=== PATIENT | female | born 1950 | race Caucasian/White ===

== ENCOUNTER 2018-02-05 09:00 | Outpatient (RCR) | payer MEDICARE, SELFPAY ==
--- NOTE | 2018-01-07 10:43 | HP.OTEVAL ---
Patient's Visit Information KATI AVILA is a 67 year old F, referred to Occupational Therapy by Juwan Thayer, with a diagnosis of L hand Paresthesia. Date of Evaluation: 01/07/18 Occupational Therapist: Katya Holt - Subjective Subjective: Arrived for OT eval. She noted that symptoms started approximately 12 years ago. She has tetanus shot and had adverse rx to the injection. 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 She noted recovered and was not determined to daily life. This pasted , 12/08/17, she noted was signing in choir and went back to sit with family. She noted as she sat down she has increased severe pain in R knee which went up and around body. She noted that it was severe and that it resulted in trip to ER as she had increased symptoms. She noted ER dx with bursitis and she followed up with darya who not Bursitis is localized pain. Dr. Thayer believed she had about GBS related attack as further blood work indicates levels related to GBS being elevated. She noted she is to go back for further blood work in a couple of months. The major lingering issue is L hand paresthia. Notes MF feels completely numb. she has not had spinal tap or further GBS related testing at this time besides blood work completed in Dr. Rdz office. Noted she has had moderate CTS for the last couple of years. - Pain Left Hand 0 - Objective Concerns: Talked with Mirian from Dr. Thayer office to get correct order from R hand to L hand. - ROM Wrist: flexion R 0-65, L 0-72; ext R 0-46, L 0-46 ROM Comments: Able to make full fist B hands. Reports no nerve conduction study at this time. - Strength Computer Systems Design Analyst: R 56, L 31 Lateral Pinch: R 16, L 10 Tripod Pinch: R 12, L 6 Tip-to-Tip Pinch: R 11, L 7 - Sensation Thumb: R 2.83, L 2.83 Index: R 2.83, L 2.83 Middle: R 2.83, L 3.22 Ring: R 3.22, L 2.83 Little: R 3.22, L 2.83 - Nine Hole Peg Right: 21.93 s Left: 21.23 s - Special Tests Phalen's (Carpal Tunnel): positive Tinel's: positive - DASH-Disabilities of Arm, Shoulder& Hand DASH Sum: 53 - Goals Goal:: Pt. to increase L sales property manager by 10 lbs to promote increased ability to complete ADl/IADLS by time of d/c. Goal:: Pt. to report decrease symptoms of numbness and tingling 4/5 trials 80% of the time to increase comfort and ability to use L hand. Goal:: Pt. to demo understanding and application of joint protect and body mechanics to decrease compression over medican nerve 4/5 trials 80% of the time by d/c. Goal:: Pt. to be mod I to complete HEP to promote increased participation in ADl/IADls and decrease symptoms of numbness and tingling 4/5 trials 80% of the time by d/c. - Rehabilitation Rehabilitation Potential: Good - Anticipated Interventions Anticipated Interventions: A/AAROM/PROM, Strengthening, Sensory Retraining, Modalities, Orthoses, Joint Protection/Energy Conservation, Ergonomic Education, Fine Motor Coord/Linus, Caregiver Training, Home Program - Visit Plan Frequency: 2-3x /Week Duration: 6 Weeks TEXT: Thank you for the opportunity to evaluate your patient. For Medicare and Medicare HMO plans, please review the plan of care and approve it. It will need to be FAXED BACK to us at [phone] for Medicare purposes. Please let me know if there are questions or concerns regarding this plan of care. Physician Signature: Date:
--- NOTE | 2018-02-05 09:38 | HP.OTDCSUM ---
HP - OT D/C Summary It has been my pleasure to treat KATI AVILA under orders from Juwan Thyaer, for the diagnosis of L hand Paresthesia for a total of 12 visit(s). Please see the following information for a summary of their discharge status. - Overall Improvement % Improvement: 75 - Objective Objective/Function: ROM is WFL for B wrist and hands. Strength measurements are as follows: supervisor prepress R 46, L 44 lbs, lateral pinch R 15, L 11; three jaw R 13, L 12; tip pinch R 13, L 12 lbs; 9 hole pegboard test results are as follows: R 18.66 s, L 20.98s; Monofilament test: R hand. 2nd 2.83. 3rd 2.83. 4th 2.83. 5th 2.83. thumb 2.83. L hand. 2nd 3.22. 3rd 3.22. 4th 2.83. 5th 2.83. thumb 2.83 - Goals Patient Goals: Regain Mobility, Regain Strength, Decrease Swelling/Stiffness, Improve Fine Motor Skills, Use Hand/Wrist/Arm Normally Again, Sleep Better, Decrease Tingling/Numbness, Be More Independent in ADLS, Resume Former Household Responsibilities (Cooking,Cleaning,Yard, etc.), Resume Hobbies Goal:: Pt. to increase L supervisor prepress by 10 lbs to promote increased ability to complete ADl/IADLS by time of d/c. Goal:: Pt. to report decrease symptoms of numbness and tingling 4/5 trials 80% of the time to increase comfort and ability to use L hand. Goal:: Pt. to demo understanding and application of joint protect and body mechanics to decrease compression over median nerve 4/5 trials 80% of the time by d/c. Goal:: Pt. to be mod I to complete HEP to promote increased participation in ADl/IADls and decrease symptoms of numbness and tingling 4/5 trials 80% of the time by d/c. - Plan Plan: She will be d/c'd today. Progress has plateaued. She is to call with questions/concerns and return to doctor if symptoms continue to get worse. Remainder of appointments will be canceled as progress has plateaued since initial evaluation. Maybe beneficial if symptoms get worse to get further testing like nerve conduction. - D/C Information If there are questions or concerns regarding this patient's occupational therapy, please fell free to call me at [phone]. Thank you for the referral of this patient. Sincerely, Katya Holt
== END 2018-02-05 18:26 | disposition home or self-care (01) ==
LOC: OT 09:00
PROVIDERS: Family Provider Student in an Organized Health Care Education/Training Program; PCP Student in an Organized Health Care Education/Training Program; Visit Provider Student in an Organized Health Care Education/Training Program
DX: R20.2 Paresthesia of skin (principal)
CPT/HCPCS: 97035; 97110; 97140; 97166; 97168; 97530; G8987; G8988

== ENCOUNTER 2020-12-02 11:38 | Emergency (ER) | payer MEDICARE, SELFPAY ==
[2020-04-13 13:58] VITALS: BMI 29.4
[2020-12-02 11:40] VITALS: BP 163/95; PULSE 72; RESP 16; TEMP 35.7; O2SAT 97; BMI 28.0
[2020-12-02 12:29] VITALS: BP 160/109; PULSE 77; RESP 22; O2SAT 97
[2020-12-02 12:33] VITALS: O2SAT 96
--- NOTE | 2020-12-02 12:35 | CT_ITS ---
STUDY: CTA CHEST REASON FOR EXAM: Female, 70 years old. Elevated dimer, sob GFT and gt;60 yesterday RADIATION DOSAGE (If Supplied By Facility): CTDIvol = ( 8.63 ) mGy, DLP = ( 365.09 ) mGycm TECHNIQUE: The examination was performed with the intravenous administration of IV 75mL Isovue-370. Post-processing of the angiographic images was performed, with multiplanar reformation and 3D reconstruction. Individualized dose optimization techniques were used for this CT. COMPARISON: None. FINDINGS: Normal enhancement of the main pulmonary artery and right and left pulmonary arteries. Normal enhancement of the bilateral peripheral pulmonary arteries. There is no demonstrated pulmonary embolism. There is atherosclerotic calcification of the aortic arch with tortuosity. There is no demonstrated aortic dissection. Normal heart and pericardium. Normal mediastinum. Normal hilar regions. Normal visualized trachea and bronchi. The lungs are well expanded. Normal pulmonary parenchyma. Normal pleura. Normal chest wall structures. There are degenerative changes of thoracic spine. Normal visualized upper abdomen. CT/CTA Chest W/WO Contrast IMPRESSION: Normal CTA chest examination, without a demonstrated pulmonary embolism or arterial dissection. Electronically Signed: Oliveir Castro MD at 13:37 EDT , Service support ,
--- NOTE | 2020-12-02 12:38 | EKG12_ITS ---
Test Reason : SOB Blood Pressure : / mmHG Vent. Rate : 056 BPM Atrial Rate : 056 BPM P-R Int : 164 ms QRS Dur : 144 ms QT Int : 448 ms P-R-T Axes : 052 -64 093 degrees QTc Int : 432 ms Sinus bradycardia Left axis deviation Left bundle branch block Abnormal ECG Confirmed by CHIN COFFEY, JAMES ([id number]), commissioning editor SARA ALFARO ([id number]) on 12/05/2020 12:57:51 PM Referred By: SUSANA Confirmed By:JAMES NEELY MD
[2020-12-02 15:35] VITALS: BP 139/62; PULSE 71; RESP 16; O2SAT 97; O2SAT 98
--- NOTE | 2020-12-02 15:41 | ED.VIS.DYS ---
HPI History of Present Illness Chief Complaint: Shortness of Breath Informant: patient Narrative Narrative: Patient is 70-year-old female with history of hypertension and hyperlipidemia presenting for elevated D-dimer and outpatient blood work. Patient followed up with a nurse practitioner at her office yesterday for complaint of shortness of breath. Patient states she has had worsening dyspnea on exertion for the past 6 months or so. She states he had a stress test about a year ago which was normal but did show a left bundle branch block. She had a D-dimer ordered which came back greater than 800 so is recommend she come to the emergency room for further evaluation. Patient states she intermittently feels like her heart is beating harder with exertion. She also feels that it is going faster. She states that she has a constant chest heaviness but denies any chest pain. She feels short of breath with exertion but feels fine at rest. She notes she intermittently does get pain in her left collarbone is not sure if that is related. She denies any associated orthopnea or leg swelling. She has a history of DVT or PE. She denies any GI or symptoms. No other complaints at this time. [facility] Medical History (Updated 12/02/20 @ 15:[address] Katherine Mullins, DO) Hyperlipidemia Hypertension Rectocele Home Medications atorvastatin 10 mg tablet 10 mg PO QDAY 10/03/17 [History Last Taken Unknown] lisinopril 5 mg tablet 5 mg PO QDAY 10/03/17 [History Last Taken Unknown] multivitamin,qu-nmuu-mwwtnllr 1 tab PO QDAY 10/03/17 [History Last Taken Unknown] estradiol See Dose Instructions VAGINAL .COMPLEX #42.5 g 04/13/20 [Rx Last Taken Unknown] Allergy/AdvReac Type Severity Reaction Status Date / Time Sulfa (Sulfonamide Allergy Mild Other Verified 12/02/20 11:39 Antibiotics) tetanus and diphtheria Allergy Mild Other Verified 12/02/20 11:39 toxoids Family History Father Cancer pulmonary Mother Heart disease Surgical History (Updated 12/02/20 @ 12:31 by Cristopher Mayers) H/O dilation and curettage History of LAVH History of partial hysterectomy History of suburethral sling procedure Social History (Updated 09/16/20 @ 14:[address] Tiara Thomas MD) Smoking Status: Never smoker alcohol intake: never substance use type: does not use caffeine: No what type of physical activity do you participate in: walking frequency: 3-4 times per week seatbelt use: always do you feel safe at home: Yes additional social history: - Susana- Leah Patient works with [employer] ED Constitutional Constitutional ED: Denies fatigue or weakness Eyes Eyes: Denies blurry vision or other visual disturbances ENT ENT ED: Denies rhinorrhea or sore throat Cardiovascular Cardiovascular: Reports chest pain and racing heartbeat; Denies orthopnea Respiratory/Chest Respiratory/Chest: Reports dyspnea on exertion; Denies cough, dyspnea or orthopnea Gastrointestinal Gastrointestinal: Denies abdominal pain, nausea or vomiting Genitourinary Genitourinary ED: Denies decreased urination or dysuria Musculoskeletal Musculoskeletal: Reports other Details: no leg swelling ; Denies extremity pain Integumentary Denies new lesions or rash Neurologic Neurologic: Denies paresthesias or weakness Psychiatric Psychiatric: Denies anxiety or depression Hematologic/Lymphatic Hematologic/Lymphatic: Denies easy bleeding or easy bruising EXAM Physical Exam Const Vital Signs: 12/02/20 11:40 12/02/20 12:29 12/02/20 12:33 Temperature 96.3 F L Temperature Source Temporal Pulse Rate 72 77 Respiratory Rate 16 22 H Respiratory Effort Normal Non-Labored Respiratory Depth Normal Respiratory Pattern Normal Blood Pressure 163/95 H 160/109 H Blood Pressure Mean 117 126 Pulse Ox 97 97 Oxygen Delivery Method Room Air Room Air Room Air 12/02/20 15:35 Temperature Temperature Source Pulse Rate 71 Respiratory Rate 16 Respiratory Effort Respiratory Depth Respiratory Pattern Blood Pressure 139/62 H Blood Pressure Mean 87 Pulse Ox 97 Oxygen Delivery Method Room Air Positive well nourished, well developed, alert and oriented x3 General Appearance ED: well developed HEENT Reports normocephalic and moist mucous membranes normocephalic and atraumatic Mouth ED: Yes moist mucous membranes normal Eyes PERRL and EOMs intact bilaterally General Eye ED: Yes normal appearance of both eyes Pupil: PERRL Neck supple and no JVD Lymph Lymphatic: no lymphadenopathy noted Chest Wall inspection of chest normal and palpation of chest normal Resp normal respiratory effort, normal air movement and clear to auscultation bilaterally Cardio regular rate, regular rhythm and no murmurs Peripheral Pulses: pulses 2+ throughout GI non-tender and non-distended Palpation: soft Back/Spine no CVA tenderness and normal to inspection Extremity normal to inspection and full ROM Neuro oriented x3, moves all extremities and no focal motor deficits Sensorium / Orientation: alert Psych mental status grossly normal and thought process normal Skin no rashes or lesions noted and no petechiae Lesions: no lesions Rashes: no rashes MDM MDM MDM Narrative Medical decision making narrative: Patient is evaluated for worsening dyspnea exertion over the past 6 months. She had elevated outpatient D-dimer so she was sent to the ER for further evaluation. Patient is well-appearing. She has normal vital signs except for mild hypertension. EKG does show left bundle branch block which is chronic. Her labs are reviewed from yesterday which show D-dimer greater than 800, normal CBC and grossly normal CMP. I given the patient had a creatinine and GFR yesterday did not repeat it. I did add on troponin and BNP which were normal. CTA did not show any acute process. Patient is ambulated emergency room and does not have any hypoxia. She is very well-appearing. I think she is stable for outpatient follow-up for her dyspnea on exertion. Patient is counseled on return precautions. She verbalized agreement understanding this plan. She is discharged home in stable condition. Lab Data Attestation: I reviewed the patient's lab results. Labs: Laboratory Results - last 24 hr 12/02/20 12/02/20 11:50 11:50 Troponin I < 0.015 B-Natriuretic Peptide 21.0 Radiography Diagnostic Testing: Radiology Impression Chest CTA 12/02/20 12:35 IMPRESSION: Normal CTA chest examination, without a demonstrated pulmonary embolism or arterial dissection. Electronically Signed: Olivier Castro MD at 13:37 EDT , Service support , Rhythm Strip Rhythm Strip: Sinus Rhythm Rate: 56 Ectopy: None EKG Initial EKG: Attestation: I personally reviewed and interpreted this EKG as follows: Interpretation: Sinus Bradycardia and LBBB Comments: Sinus bradycardia rate of 56 Left axis deviation Normal intervals Left bundle branch block No ischemic changes Treatment and Re-Evaluation Comments:: Elevated outpatient D-dimer. CTA, troponin and BNP all unremarkable. Discharged home after normal ambulatory pulse ox. Discharge Plan Triage Chief Complaint: Shortness of Breath ED Provider: Katherine Mullins Dx/Rx/DC Orders Clinical Impression: MAJOR (dyspnea on exertion) Instructions: ED Dyspnea Prescriptions: No Action atorvastatin [Lipitor] 10 mg tablet 10 mg PO QDAY RF: 0 lisinopril 5 mg tablet 5 mg PO QDAY RF: 0 multivitamin,iu-evdb-lhovxatl tablet tablet 1 tab PO QDAY RF: 0 estradiol [Estrace] 0.01 % (0.1 mg/gram) cream See Dose Instructions VAGINAL .COMPLEX Qty: 42.5 RF: 3 Primary Care Provider: Juwan Thayer Referrals: Juwan Thayer DO [Primary Care Provider] - Activity Restrictions/Additional Instructions: Your work-up here is normal. I am not sure what is causing your shortness of breath but I recommend he continue to follow-up with your primary care doctor for further evaluation of this. You might require referral to a heart doctor or a lung doctor. Disposition Disposition: Home, self care
[2020-12-02 16:14] VITALS: BP 156/90; PULSE 82; RESP 17; O2SAT 97
== END 2020-12-02 16:21 | disposition home or self-care (01) ==
PROVIDERS: Emergency Provider Emergency Medicine; PCP Student in an Organized Health Care Education/Training Program
DX: R06.09 Other forms of dyspnea (principal); R07.89 Other chest pain; I10 Essential (primary) hypertension; I44.7 Left bundle-branch block, unspecified; E78.5 Hyperlipidemia, unspecified; Z79.899 Other long term (current) drug therapy
CPT/HCPCS: 71275; 83880; 84484; 93005; 99284; Q9967

== ENCOUNTER → 2023-03-21 | Outpatient (CLI) | payer MEDICARE, SELFPAY ==
[2023-03-21 17:12] LABS: Absolute Lymphocyte Count 1.95 X10^3/uL (0.83-4.51); Absolute Neutrophil Count 3.2 X10^3/uL (2.0-7.7); Basophil# 0.03 X10^3/uL; Basophil% 0.5 % (0-1); Eosinophil# 0.06 X10^3/uL; Hematocrit 43.3 % (37-47); Hemoglobin 14.4 g/dL (12.0-15.0); Lymphocyte # 1.95 X10^3/ul (0.83-4.51); Lymphocyte % 34.1 % (19-41); Mean Corp Hgb Conc 33.3 g/dL (32-36); Mean Corpuscular Hgb 30.2 pg (27.0-32.0); Mean Corpuscular Volume 90.8 fL (81-99); Mean Platelet Vol. 10.9 fl (6.2-12.0); Monocyte# 0.49 X10^3/uL; Monocyte% 8.6 % (0-10); NRBC Flagged by Analyzer 0 % (0-5); Neutrophil # 3.18 X10^3/uL (2.7-7.7); Neutrophil % 55.6 % (47-70); Platelet Count 162 K/mm3 (150-450); RBC Distribution Width CV 12.4 % (11.6-14.6); RBC Distribution Width SD 41.4 fl (35.1-43.9); Red Blood Count 4.77 M/mm3 (4.2-5.4); White Blood Count 5.7 K/mm3 (4.4-11.0)
[2023-03-21 17:19] LABS: Erythrocyte Sedimentation Rate 3 mm/hr (0-30)
[2023-03-21 17:45] LABS: CRP < 2.90 mg/L (0.0-3.0); LDH 176 U/L (84-246)
[2023-03-25 13:07] LABS: Anti-Centromere B Ab <0.2 AI (0.0-0.9); Anti-Chromatin <0.2 AI (0.0-0.9); Anti-Jo <0.2 AI (0.0-0.9); Anti-Scleroderma-70 AB <0.2 AI (0.0-0.9); Anti-dsDNA Ab <1 IU/mL (0-9); RNP Ab <0.2 AI (0.0-0.9); SJOGREN'S Anti-SS-A test < 0.2 AI (0.0-0.9); SJOGREN'S Anti-SS-B test < 0.2 AI (0.0-0.9); Smith Ab <0.2 AI (0.0-0.9)
[2023-03-25 22:06] LABS: Pancreatic Elastase, Fecal 238 (>200)
[2023-03-26 03:07] LABS: Albumin 3.4 g/dL (2.9-4.4); Alpha-1-Globulins 0.2 g/dL (0.0-0.4); Alpha-2-Globulins 0.7 g/dL (0.4-1.0); Cytoplasmic Ab (C-ANCA) <1:20 titer (Neg:<1:20); Endomysial Antibody IgA Negative (Negative); Gamma Globulin 1.1 g/dL (0.4-1.8); Immunoglobulin A 290 mg/dL (64-422); Immunoglobulin E 24 IU/mL (6-495); Immunoglobulin G 1142 mg/dL (586-1602); Immunoglobulin M 69 mg/dL (26-217); PROEL- TOTAL PROTEIN 6.6 g/dL (6.0-8.5); Perinuclear Ab (P-ANCA) <1:20 titer (Neg:<1:20); t-Transglutaminase IgA <2 U/mL (0-3)
[2023-03-27 01:06] LABS: Calprotectin, Stool 75 ug/g (0-120)
== END | disposition home or self-care (01) ==
PROVIDERS: PCP Student in an Organized Health Care Education/Training Program; Referring Provider Internal Medicine Gastroenterology; Visit Provider Internal Medicine Gastroenterology
DX: N81.6 Rectocele (principal); K58.9 Irritable bowel syndrome, unspecified
CPT/HCPCS: 36415; 82653; 82784; 82785; 83516; 83615; 83630; 83993; 84165; 85025; 85652; 86140; 86225; 86235; 86255; 86256; 86334; 87177; 87209; 87329; 87493; 87506

== ENCOUNTER 2023-03-22 09:16 | Outpatient (CLI) | payer MEDICARE, SELFPAY | END 2023-03-22 23:59 | disposition home or self-care (01) | LOC: MTLAB 09:16 | PROVIDERS: PCP Student in an Organized Health Care Education/Training Program; Referring Provider Internal Medicine Gastroenterology; Visit Provider Internal Medicine Gastroenterology | DX: Z00.00 Encounter for general adult medical examination without abnormal findings (principal) ==

== ENCOUNTER → 2023-04-04 | Outpatient (CLI) | payer MEDICARE, SELFPAY ==
--- NOTE | 2023-04-04 14:32 | CT_ITS ---
STUDY: CT ABDOMEN AND PELVIS WITH CONTRAST REASON FOR EXAM: Female, 73 years old. Epigastric pain with radiation to the lower abdomen. Diarrhea. RADIATION DOSAGE (If Supplied By Facility): CTDIvol = ( 10.3 ) mGy, DLP = ( 509.75 ) mGycm TECHNIQUE: Transaxial images were obtained from the dome of the diaphragm to the symphysis pubis with oral contrast. Oral and amp; IV Readi-CAT and amp; 100mL Isovue-300 was administered. Sagittal and coronal images were reconstructed. Individualized dose optimization techniques were used for this CT. COMPARISON: None. FINDINGS: The visualized lung bases are unremarkable. The visualized portions of the heart are within normal limits. 8 mm cyst in the dome of the right lobe of the liver. Minimally dilated central intrahepatic biliary ducts. The common bile duct is slightly dilated measuring 6.1 mm. This extends down to the region of the ampulla of Vater. Heterogeneous appearance of the gallbladder lumen. Sludge or small gallstones should be ruled out. Correlation with ultrasound is recommended. Normal spleen. Normal pancreas. Normal bilateral adrenal glands. Normal right kidney. Normal left kidney. Normal visualized stomach. Normal small intestine. Large amount of fecal material is seen in the colon. There are multiple colonic diverticula consistent with diverticulosis. There is non-visualization of the appendix. Normal abdominal aorta. Normal inferior vena cava. Normal retroperitoneum. Normal urinary bladder. There is absence of the uterus consistent with a prior hysterectomy. Normal abdominal wall. Minimal anterior listhesis of L4 on L5 most likely secondary to facet joint osteoarthritis. CT/Abdomen/Pelvis WITH Contrast IMPRESSION: 8 mm cyst in the dome of the right lobe of the liver. Minimally dilated central intrahepatic biliary ducts and common bile duct. Heterogeneous appearance of the gallbladder lumen. Correlation with ultrasound is recommended. Electronically Signed: Olivier Castro MD at 15:37 EDT ,
== END | disposition home or self-care (01) ==
LOC: CT 14:29
PROVIDERS: PCP Student in an Organized Health Care Education/Training Program; Referring Provider Internal Medicine Gastroenterology; Visit Provider Internal Medicine Gastroenterology
DX: R10.9 Unspecified abdominal pain (principal)
CPT/HCPCS: 74177; Q9967

== ENCOUNTER → 2023-05-01 | Outpatient (CLI) | payer MEDICARE, SELFPAY ==
[2023-05-01 15:43] LABS: ALB/GLOB Ratio 0.9 RATIO (0.9-2.4); AST(SGOT) 17 U/L (15-37); Alanine Aminotransfer ALT/SGPT 25 U/L (13-56); Albumin, Serum 3.2 g/dL (3.2-5.0); Alkaline Phosphatase 91 U/L (45-117); Anion Gap 3 (5-15); BUN 18 mg/dL (7-18); BUN/Creat Ratio 20.9 RATIO (10-20); Calcium,Total 9.3 mg/dL (8.5-10.1); Chloride 111 mmol/L (98-107); Creatinine, Serum 0.86 mg/dL (0.55-1.02); EST Glomerular Filtration Rate 69 mL/min (>60); Est Glom Filt Rate - Afr Amer 83 mL/min (>60); Globulin 3.5 g/dL (2.2-4.2); Glucose 118 mg/dL (74-106); Potassium 4.2 mmol/L (3.5-5.1); Protein, Total 6.7 g/dL (6.4-8.2); Sodium Level 142 mmol/L (136-145)
[2023-05-04 19:07] LABS: Clam <0.10 kU/L (Class 0); Codfish <0.10 kU/L (Class 0); Corn <0.10 kU/L (Class 0); Egg, White <0.10 kU/L (Class 0); Milk (Cow) <0.10 kU/L (Class 0); Peanut <0.10 kU/L (Class 0); SCALLOP <0.10 kU/L (Class 0); SESAME SEED <0.10 kU/L (Class 0); Shrimp <0.10 kU/L (Class 0); Soybean <0.10 kU/L (Class 0); Walnut, (Food) <0.10 kU/L (Class 0); Wheat <0.10 kU/L (Class 0)
== END | disposition home or self-care (01) ==
LOC: LAB 13:58
PROVIDERS: PCP Student in an Organized Health Care Education/Training Program; Referring Provider Internal Medicine Gastroenterology; Visit Provider Internal Medicine Gastroenterology
DX: N81.6 Rectocele (principal); R10.9 Unspecified abdominal pain; Z91.018 Allergy to other foods
CPT/HCPCS: 36415; 80053; 86003

== ENCOUNTER → 2023-05-21 | Outpatient (CLI) | payer MEDICARE, SELFPAY ==
--- NOTE | 2023-05-21 15:34 | MRI_ITS ---
STUDY: MR CHOLANGIOPANCREATOGRAPHY (MRCP) REASON FOR EXAM: Female, 73 years old. intrahepatic duct dilation TECHNIQUE: Standard MRCP technique was utilized. COMPARISON: None. FINDINGS: Gall Bladder: Normal with no distention or demonstrated fixed intraluminal filling defect. Cystic duct: Normal with no demonstrated fixed filling defect. Intrahepatic ducts: Normal visualized intrahepatic ducts with no demonstrated fixed filling defect, dilation or stricture. Common hepatic duct: Normal with no demonstrated fixed filling defect, dilation or stricture. Common bile duct: Normal with no demonstrated fixed filling defect, dilation or stricture. Pancreatic duct: Normal with no demonstrated fixed filling defect, dilation or stricture. MRI/MRCP Abdomen without Contrast IMPRESSION: Normal MR Cholangiopancreatography (MRCP). Electronically Signed: Mahendra Reynolds MD at 18:11 EDT ,
== END | disposition home or self-care (01) ==
PROVIDERS: PCP Student in an Organized Health Care Education/Training Program; Referring Provider Internal Medicine Gastroenterology; Visit Provider Internal Medicine Gastroenterology
DX: K83.8 Other specified diseases of biliary tract (principal)
CPT/HCPCS: 74181